=== PATIENT | female | born 1955 | race Caucasian/White ===

== ENCOUNTER 2020-02-27 12:20 | Outpatient (CLI) | payer BC, SELFPAY ==
--- NOTE | ~2020-02-27 | CT_ITS ---
EXAMINATION: CT abdomen pelvis w con EXAM DATE: 02/27/2020 13:43 INDICATION: Right-sided abdominal pain. Postmenopausal bleeding. Hypertension. TECHNIQUE: Spiral CT of the abdomen and pelvis was performed following intravenous injection of 100 m L Omnipaque 350. Axial, coronal and sagittal images were reviewed. The dose-length product (DLP) fo r this examination was 1039.63 mGy-cm. The exposure was tailored according to patient size (auto mA exposure control), and iterative reconstruction (ASIR) was used as additional dose reduction techniqu e. There is no prior study for comparison. FINDINGS: The endometrium is severely thickened, measuring up to about 5 cm, and enhancing heterogene ously. Appearance is highly suspicious for endometrial cancer. The liver, spleen, adrenal glands and pancreas are unremarkable. The gallbladder is contracted but otherwise unremarkable. Renal peripelv ic cysts. Portal and splenic veins are patent. Kidneys enhance symmetrically. There is no hydronep hrosis. The bladder is unremarkable. There is no retroperitoneal or pelvic lymphadenopathy. Ther e is mild scattered arteriosclerotic disease. The appendix is normal. The stomach and small bowel are unremarkable. There is expected amount of c olonic stool. No free intraperitoneal gas. The heart is normal in size. There are no pericardial or pleural effusions. The lung bases are unremarkable. There are no osteoblastic or osteolytic les ions identified. IMPRESSION: Findings highly suspicious for endometrial cancer. Histologic correlation indicated. No e vidence of metastatic disease. I discussed this case with Birgit Conner, ANP at 02/27/2020 15:34 CDT. Reviewed, dictated and finalized at location B. IMPRESSION: Findings highly suspicious for endometrial cancer. Histologic corre lation indicated. No evidence of metastatic disease. I discussed this case with Birgit Conner, ANP at 02/27/2020 15:34 CDT.
--- NOTE | ~2020-02-27 | US_ITS ---
EXAMINATION: US pelvic complete w TV EXAM DATE: 02/27/2020 13:34 INDICATION: Postmenopausal bleeding. TECHNIQUE: Pelvic transabdominal and transvaginal sonogram was performed. There are multiple graysca le and Doppler images available for interpretation. There is no prior study for comparison. FINDINGS: Uterus measures 12.3 x 6.6 x 7.9 cm, with ill-defined heterogeneous and thickened endometr ium difficult to measure; recommend histologic correlation. There is no free pelvic fluid. Right adnexa: The ovary is not identified. There is no adnexal mass. Left adnexa: The ovary measures 12.7 x 1.8 x 2.2 cm and is morphologically normal. Ovarian vascular f low confirmed. IMPRESSION: 1. Abnormally thickened endometrium suspicious for cancer; recommend histologic correlation. Reviewed, dictated and finalized at location B. IMPRESSION: 1. Abnormally thickened endometrium suspicious for cancer; recommend histologi c correlation.
[2020-02-27 13:37] LABS: Estimated Glomerular Filt Rate > 60
== END 2020-02-27 12:21 | disposition home or self-care (01) ==
PROVIDERS: PCP Physician Assistant Medical; Visit Provider Physician Assistant Medical
DX: N95.0 Postmenopausal bleeding (principal); R93.89 Abnormal findings on diagnostic imaging of other specified body structures
CPT/HCPCS: 36415; 74177; 76830; 76856; Q9967

== ENCOUNTER 2020-11-21 13:04 | Outpatient (CLI) | payer BC, SELFPAY ==
--- NOTE | 2020-11-21 15:42 | NEURO_ITS ---
Patient number: [id number] IMPRESSION: # Known diabetic complains of back pain and numbness of lower extremities. # Neuropathy. # Superimposed higher involvement cannot be ruled out. # Clinical correlation recommended. Nerve Conduction Studies Anti Sensory Summary Table Stim Site NR Peak (ms) P-T Amp (?V) Site1 Site2 Delta-P (ms) Dist (cm) Shar (m/s) Left Sup Fibular Anti Sensory (Ant Lat Mall) 14 cm 3.7 3.5 14 cm Ant Lat Mall 3.7 16.0 43 Right Sup Fibular Anti Sensory (Ant Lat Mall) 14 cm 3.9 9.7 14 cm Ant Lat Mall 3.9 16.0 41 Left Sural Anti Sensory (Lat Mall) Calf 3.9 2.7 Calf Lat Mall 3.9 16.0 41 Right Sural Anti Sensory (Lat Mall) Calf 4.2 25.3 Calf Lat Mall 4.2 16.0 38 Motor Summary Table Stim Site NR Onset (ms) O-P Amp (mV) Site1 Site2 Delta-0 (ms) Dist (cm) Shar (m/s) Left Peroneal Motor (Vastus Med) Ankle 4.1 0.7 Popit Ankle 9.4 34.0 36 Popit 13.5 0.2 Right Peroneal Motor (Vastus Med) Ankle 3.6 0.7 Popit Ankle 8.8 37.0 42 Popit 12.4 0.5 Left Tibial Motor (Abd Dickey Brev) Ankle 4.5 2.5 Knee Ankle 10.0 38.0 38 Knee 14.5 1.5 Right Tibial Motor (Abd Dickey Brev) Ankle 4.4 1.3 Knee Ankle 9.5 37.0 39 Knee 13.9 2.0 F Wave Studies NR F-Lat (ms) L-R F-Lat (ms) Left Peroneal (Mrkrs) (EDB) 56.84 0.94 Right Peroneal (Mrkrs) (EDB) 57.78 0.94 Left Tibial (Mrkrs) (Abd Hallucis) 57.90 0.58 Right Tibial (Mrkrs) (Abd Hallucis) 58.48 0.58 EMG Side Muscle Nerve Root Ins Act Fibs Amp Dur Recrt Comment Right AntTibialis Dp Br Fibular L4-5 Nml Nml Nml Nml Nml Right Gastroc Tibial S1-2 Nml Nml Nml Nml Nml Right Fibularis Long Sup Br Fibular L5-S1 Nml Nml Nml Nml Nml Right Flex Dig Long Tibial L5-S2 Nml Nml Nml Nml Nml Right Ext Dig Brev Dp Br Fibular L5, S1 Nml Nml Nml Nml Nml Left AntTibialis Dp Br Fibular L4-5 Nml Nml Nml Nml Nml Left Gastroc Tibial S1-2 Nml Nml Nml Nml Nml Left Fibularis Long Sup Br Fibular L5-S1 Nml Nml Nml Nml Nml Left Flex Dig Long Tibial L5-S2 Nml Nml Nml Nml Nml Left Ext Dig Brev Dp Br Fibular L5, S1 Nml Nml Nml Nml Nml MTDD
== END 2020-11-21 13:05 | disposition home or self-care (01) ==
LOC: ANHNEURO 13:06
PROVIDERS: PCP Physician Assistant Medical; Visit Provider Physician Assistant Medical
DX: G62.9 Polyneuropathy, unspecified (principal)
CPT/HCPCS: 95886; 95910